=== PATIENT | male | born 1985 | race Caucasian/White ===

== ENCOUNTER 2019-07-24 19:16 | Emergency (ER) | payer SELFPAY ==
[~2019-07-24] VITALS: Ht 177.8 cm; Wt 73.0 kg
[2019-07-24] MEDS ORDERED: IV NS 0.9% 1,000 ML BAG IV ONE (19:30)
[2019-07-24] MEDS ORDERED: ONDANSETRON HCL/PF 4 MG/2 ML VIAL IVP ONE (19:30)
[2019-07-24 19:38] LABS: BASOPHILS # (AUTO) 0.1 /CMM (0.0-0.2); BASOPHILS % (AUTO) 0.9 % (0.0-2.0); EOSINOPHILS % (AUTO) 5.1 % (0.0-6.0); HEMATOCRIT 38 % (39-51); HEMOGLOBIN 12.9 g/dL (13.5-17.5); LYMPHOCYTES # (AUTO) 3.4 /CMM (0.8-4.8); LYMPHOCYTES % (AUTO) 33.4 % (20.0-44.0); MEAN CORPUSCULAR HGB CONC 34 g/dl (31.0-36.0); MEAN CORPUSCULAR VOLUME 96 fL (80-96); MONOCYTES # (AUTO) 0.9 /CMM (0.1-1.30); MONOCYTES % (AUTO) 8.8 % (2.0-12.0); NEUTROPHILS # (AUTO) 5.4 /CMM (1.8-8.9); NEUTROPHILS % (AUTO) 51.8 % (43.0-81.0); PLATELET COUNT (AUTO) 273 /CMM (150-450); RED BLOOD CELL COUNT(AUTO) 3.94 MIL/uL (4.5-6.0); WHITE BLOOD COUNT (AUTO) 10.3 K/uL (4.3-11.0)
[2019-07-24] MEDS ORDERED: ONDANSETRON HCL/PF 4 MG/2 ML VIAL ONE (19:38)
--- NOTE | 2019-07-24 19:47 | NUR ---
[place] [facility]. AAOX[facility]. NO RESP DISTRESS NOTED, BREATHING EVEN AND UNLABORED. TRANSFERRED FROM [facility] TO ER BED ON HIS OWN. BROUGHT IN FOR SYNCOPAL EPISODE. PT STATES THAT THEY WHERE WAITING FOR THEIR UBER WHEN HE SUDDENLY FELT LIGHTHEADED, WEAK AND HOT. LAST THING THE PT REMEMBERED THE HE FEELS LIKE HE WANT TO SIT DOWN. PT UNCLE IS AT BEDSIDE, PER REPORT HE WAS SWEATY, COLD AND PALE. HE THEN PASSED OUT AND HIS UNCLE CAUGHT HIM. NO HEAD TRAUMA REPORTED. EMS REPORTED BS AT 54, GIVEN 250ML D10. BS UPON ARRIVAL AT 187. MD WAS AT BEDSIDE FOR EVAL. ORDERS RECEIVED NOTED AND CARRIED OUT. IV LINE ON R AC 18G BY EMS. BLOOD DRAW. WILL CONTINUE TO MONITOR
[2019-07-24 19:58] LABS: ALBUMIN 3.7 g/dL (3.4-5.0); BILIRUBIN,TOTAL 0.1 mg/dL (0.2-1.0); CALCIUM, SERUM 8.8 mg/dL (8.5-10.1); CREATININE 1.1 mg/dL (0.6-1.3); POTASSIUM 3.3 mmol/L (3.5-5.1); TOTAL PROTEIN, SERUM 6.9 g/dL (6.4-8.2)
--- NOTE | 2019-07-24 20:09 | NUR ---
PT TO CT ON TESS
--- NOTE | 2019-07-24 21:13 | NUR ---
Patient discharged to home in stable condition. Written and verbal after care instructions given. Patient verbalizes understanding of instruction.IV removed. Catheter intact and site benign. Pressure and 4x4 applied to site. No bleeding noted. Pt ambulatory with a steady gait
[2019-07-24 21:14] VITALS: BP 120/70
== END 2019-07-24 21:14 | disposition home or self-care (01) ==
LOC: ER 19:17
DX: I95.1 Orthostatic hypotension (principal); F12.90 Cannabis use, unspecified, uncomplicated; R42 Dizziness and giddiness; Z60.2 Problems related to living alone
CPT/HCPCS: 36415; 70450; 80048; 80076; 80307; 82140; 82962; 85025; 93005; 96361; 96374; 99284; J2405; J7030; G0480